=== PATIENT | male | born 1985 | race Caucasian/White ===

== ENCOUNTER 2018-02-16 17:29 | Emergency (ER) | payer MEDICAID ==
[~2018-02-16] VITALS: Ht 170.2 cm; Wt 78.1 kg
[2018-02-16 19:26] VITALS: BP 107/75
== END 2018-02-16 19:55 | disposition home or self-care (01) ==
LOC: ED 19:00
DX: J34.0 Abscess, furuncle and carbuncle of nose (principal); B34.9 Viral infection, unspecified; R05 Cough; Z59.0 Homelessness; Z72.9 Problem related to lifestyle, unspecified; F17.200 Nicotine dependence, unspecified, uncomplicated
CPT/HCPCS: 71046; 93005; 99284

== ENCOUNTER 2018-07-03 11:04 | Emergency (ER) | payer MEDICAID ==
[~2018-07-03] VITALS: Ht 170.2 cm; Wt 69.5 kg
[2018-07-03 11:48] VITALS: BP 97/76
--- NOTE | 2018-07-03 11:48 | NUR ---
CALLED, NIL X 1
[2018-07-03 12:33] LABS: BASOPHILS # (AUTO) 0.03 x10^3/uL (0-0.1); BASOPHILS % (AUTO) 0 % (0-1); EOSINOPHILS # (AUTO) 0.08 x10^3/uL (0-0.4); EOSINOPHILS % (AUTO) 1 % (1-7); LYMPHOCYTES # (AUTO) 0.46 x10^3/uL (1-3.4); LYMPHOCYTES % (AUTO) 3 % (22-44); MD NO; MEAN CORPUSCULAR HGB CONC 33.2 g/dL (33.2-36.2); MEAN CORPUSCULAR VOLUME 90.2 fL (81-97); MEAN PLATELET VOLUME 7.8 fL (7.4-10.4); MONOCYTES # (AUTO) 0.53 x10^3/uL (0.2-0.8); MONOCYTES % (AUTO) 4 % (2-9); NEUTROPHILS # (AUTO) 13.47 x10^3/uL (1.8-6.8); NEUTROPHILS % (AUTO) 93 % (42-75); PLATELET COUNT 336 x10^3/uL (130-400); RED BLOOD COUNT 5.46 x10^6/uL (4.38-5.82); RED CELL DISTRIBUTION WIDTH 13.6 % (9.4-14.8)
[2018-07-03 12:41] LABS: ANION GAP 6 mmol/L (5-15); CHLORIDE 109 mmol/L (98-107)
[2018-07-03 12:47] LABS: ALANINE AMINOTRANSFERASE 24 U/L (12-78); ALKALINE PHOSPHATASE 99 U/L (45-117); BILIRUBIN,TOTAL 0.7 mg/dL (0.2-1.0); CREATININE 1.13 mg/dL (0.7-1.3); TROPONIN I < 0.015 ng/mL (0.000-0.045)
--- NOTE | 2018-07-03 15:43 | NUR ---
CALLED FOR ROOM, NO ANSWER
--- NOTE | 2018-07-03 16:12 | NUR ---
NA X 2 [id number]
--- NOTE | 2018-07-03 16:46 | NUR ---
3RD CALL FOR ROOM, NO ANSWER.
== END 2018-07-03 16:48 | disposition left against medical advice (07) ==
LOC: ED 16:42
DX: K52.9 Noninfective gastroenteritis and colitis, unspecified (principal); R07.9 Chest pain, unspecified
CPT/HCPCS: 36415; 71045; 80053; 83690; 84484; 85025; 93005; 99284

== ENCOUNTER 2018-11-04 00:18 | Emergency (ER) | payer MEDICAID ==
[~2018-11-04] VITALS: Ht 170.2 cm; Wt 67.7 kg
[2018-11-04 00:20] VITALS: BP 116/78
--- NOTE | 2018-11-04 01:30 | NUR ---
pt called to room from lobby
[2018-11-04] MEDS ORDERED: KETOROLAC 30 MG/1 ML IM ONE (02:00)
[2018-11-04] MEDS ORDERED: DEXAMETHASONE 4 MG TABLET PO ONE (02:00)
[2018-11-04] MEDS ORDERED: DEXAMETHASONE 4 MG/ML, 1ML ONE (02:11)
[2018-11-04] MEDS ORDERED: KETOROLAC 30 MG/1 ML ONE (02:11)
[2018-11-04] MEDS ORDERED: KETOROLAC 30 MG/1 ML IVPush ONE (02:30)
[2018-11-04] MEDS ORDERED: DEXAMETHASONE 4 MG/ML, 1ML IVPush ONE (02:30)
[2018-11-04 02:37] LABS: MEAN CORPUSCULAR HEMOGLOBIN 29.9 pg (27.5-34.5); MEAN CORPUSCULAR HGB CONC 32.3 g/dL (33.2-36.2); MEAN CORPUSCULAR VOLUME 92.5 fL (81-97); PLATELET COUNT 210 x10^3/uL (130-400); RED BLOOD COUNT 4.29 x10^6/uL (4.38-5.82); RED CELL DISTRIBUTION WIDTH 13.9 % (9.4-14.8)
[2018-11-04 02:38] LABS: ALBUMIN 3.1 g/dL (3.4-5.0); ANION GAP 9 mmol/L (5-15); CALCIUM 8.6 mg/dL (8.5-10.1); CHLORIDE 103 mmol/L (98-107); CREATININE 1.03 mg/dL (0.7-1.3)
--- NOTE | 2018-11-04 02:48 | NUR ---
meds and iv done, awaiting ct.
[2018-11-04] MEDS ORDERED: OMNIPAQUE 350 MG/ML, 100ML BOTTLE ONE (02:59)
[2018-11-04 03:08] LABS: BASOPHILS # (AUTO) 0.07 x10^3/uL (0-0.1); BASOPHILS % (AUTO) 1 % (0-1); EOSINOPHILS # (AUTO) 0.13 x10^3/uL (0-0.4); EOSINOPHILS % (AUTO) 1 % (1-7); LYMPHOCYTES % (AUTO) 17 % (22-44); MONOCYTES # (AUTO) 1.55 x10^3/uL (0.2-0.8); MONOCYTES % (AUTO) 16 % (2-9); NEUTROPHILS # (AUTO) 6.58 x10^3/uL (1.8-6.8); NEUTROPHILS % (AUTO) 66 % (42-75)
[2018-11-04 03:09] LABS: MD SCAN
--- NOTE | 2018-11-04 03:38 | NUR ---
pt awaiting ct results, pt went to [place] area and made aware pt wanted to leave. pt ct still pending, dr worthy went to tell pt to stay as he has an abscess and possible drainage needed. pt went back to room. pt removed iv also
[2018-11-04] MEDS ORDERED: LIDOCAINE 1%-EPI 1:100K, 20ML INFIL ONE (04:00)
--- NOTE | 2018-11-04 04:07 | NUR ---
pt back to room for I&D, pt wanted to leave to eat and this rn instructed to get drainage first then will get rx and be ready to go as pt doesnt want to stay.
--- NOTE | 2018-11-04 04:17 | NUR ---
pt given rx and instructed to fill/take until gone, pt verbalized understanding. pt instructed to come back if worse, f/u with hopes.
== END 2018-11-04 04:18 | disposition home or self-care (01) ==
LOC: ED 03:20
DX: J36 Peritonsillar abscess (principal); M54.2 Cervicalgia; F17.200 Nicotine dependence, unspecified, uncomplicated
CPT/HCPCS: 36415; 42999; 70360; 70491; 80048; 82040; 85025; 87880; 96374; 96375; 99284; J1100; J1885; Q9967